=== PATIENT | male | born 1935 | race Caucasian/White ===

== ENCOUNTER → 2017-02-07 | Outpatient (CLI) | payer MEDICARE, OTHER ==
[~2017-02-07] MED LIST: ALLO300T PO; AMLO2.5T PO; ASPI-621 PO; CALC-141 PO; CHOL100018 PO; CHOL400D3 PO; METO25TA35 PO; MULT-289 PO; OMEP-110 PO; PRAV80TA2 PO; SODI650T PO; VITA10004 PO; VITA150T PO; ZINC50TA2 PO
== END | disposition home or self-care (01) ==
LOC: CVU 09:52
PROVIDERS: ATTEND Internal Medicine Cardiovascular Disease
DX: I25.10 Atherosclerotic heart disease of native coronary artery without angina pectoris (principal); I65.23 Occlusion and stenosis of bilateral carotid arteries; E78.2 Mixed hyperlipidemia
CPT/HCPCS: 93880

== ENCOUNTER 2019-09-04 08:09 | Outpatient (CLI) | payer MEDICARE, OTHER ==
[~2019-09-04 08:09] MED LIST changes: -AMLO2.5T PO; +AMLO2.5T5 PO; -ASPI-621 PO; +ASPI81TA45 PO; +CHOL100012 PO; -CHOL100018 PO; +REGADENOSON 0.4 MG/5 ML SYRINGE ONE
== END 2019-09-04 23:59 | disposition home or self-care (01) ==
LOC: CFH 08:09
PROVIDERS: ATTEND Internal Medicine Cardiovascular Disease
DX: I25.89 Other forms of chronic ischemic heart disease (principal); I25.10 Atherosclerotic heart disease of native coronary artery without angina pectoris; Z87.891 Personal history of nicotine dependence
CPT/HCPCS: 78452; 93017; A9502; J2785

== ENCOUNTER 2021-02-09 15:08 | Emergency (ER) | payer MEDICARE, OTHER ==
[~2021-02-09] VITALS: Ht 167.6 cm; Wt 67.6 kg
[~2021-02-09 15:08] MED LIST changes: -REGADENOSON 0.4 MG/5 ML SYRINGE ONE
[2021-02-09 15:42] LABS: BASOPHILS % (AUTO) 1 % (0-1); EOSINOPHILS % (AUTO) 2 % (1-7); LYMPHOCYTES % (AUTO) 13 % (22-44); MEAN CORPUSCULAR HEMOGLOBIN 30.8 pg (27.5-34.5); MEAN CORPUSCULAR HGB CONC 32.2 g/dL (33.2-36.2); MEAN PLATELET VOLUME 9.2 fL (7.4-10.4); MONOCYTES % (AUTO) 6 % (2-9); NEUTROPHILS % (AUTO) 78 % (42-75); PLATELET COUNT 189 x10^3/uL (130-400); RED BLOOD COUNT 4.52 x10^6/uL (4.38-5.82); RED CELL DISTRIBUTION WIDTH 16.1 % (9.4-14.8)
--- NOTE | 2021-02-09 15:50 | NUR ---
ASSUMED CARE OF PATIENT. PATIENT REPORTS HE HAS HAD CHEST PRESSURE SINCE THIS AM. PT WAS TOLD HIS K WAS HIGH AND HAS BEEN ON MEDICATION TO BRING IT DOWN AT HOME. 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 PT IS PACED. VS STABLE. CALL LIGHT IN PLACE. WILL CONTINUE TO MONITOR.
[2021-02-09] MEDS ORDERED: PRAV20TA2 PO (15:52)
[2021-02-09 15:53] LABS: ALANINE AMINOTRANSFERASE 14 U/L (12-78); ALBUMIN 3.8 g/dL (3.4-5.0); ANION GAP 5 mmol/L (5-15); CALCIUM 10.1 mg/dL (8.5-10.1); CHLORIDE 114 mmol/L (98-107); CREATININE 2.48 mg/dL (0.7-1.3)
[2021-02-09] MEDS ORDERED: FAMO20TA7 PO (15:54)
[2021-02-09 15:57] LABS: ALKALINE PHOSPHATASE 78 U/L (45-117); BILIRUBIN,TOTAL 0.4 mg/dL (0.2-1.0); TOTAL PROTEIN 7.3 g/dL (6.4-8.2); TROPONIN I < 0.015 ng/mL (0.000-0.045)
[2021-02-09 16:10] LABS: MD SCAN
--- NOTE | 2021-02-09 16:22 | NUR ---
DR GAUTHIER IN ROOM UPDATING PATIENT
[2021-02-09 16:45] VITALS: BP 154/66
--- NOTE | 2021-02-09 16:53 | NUR ---
VS STABLE. NO ACUTE DISTRESS NOTED. PT DISCHARGED PER DR GUATHIER.
== END 2021-02-09 16:55 | disposition home or self-care (01) ==
LOC: ED 16:49
DX: E87.5 Hyperkalemia (principal); K44.9 Diaphragmatic hernia without obstruction or gangrene; R07.9 Chest pain, unspecified; I45.10 Unspecified right bundle-branch block
CPT/HCPCS: 36415; 71045; 80053; 84484; 85025; 93005; 99285